=== PATIENT | female | born 1940 | race Caucasian/White ===

== ENCOUNTER 2024-03-23 11:57 | Inpatient (IN) | payer MEDICARE, MEDICAID ==
[2024-03-23 13:07] LABS: BASOPHILS ABSOLUTE AUTO 0.06 K/uL (0.00-0.20); BASOPHILS PERCENT AUTO 0.4 % (0.0-1.0); EOSINOPHILS ABSOLUTE AUTO 0.05 K/uL (0.00-0.45); EOSINOPHILS PERCENT AUTO 0.4 % (0.0-6.0); HEMATOCRIT 44.4 % (37.0-47.0); HEMOGLOBIN 14.6 g/dL (12.0-16.0); IMMATURE GRAN ABSOLUTE AUTO 0.06 K/uL (0.00-0.05); IMMATURE GRAN PERCENT AUTO 0.4 % (0.0-0.4); LYMPHOCYTES ABSOLUTE AUTO 2.08 K/uL (1.00-4.80); LYMPHOCYTES PERCENT AUTO 14.6 % (24.0-44.0); MEAN CORPUSCULAR HEMOGLOBIN 28.9 pg (28.0-32.0); MEAN CORPUSCULAR HGB CONC 32.9 g/dL (32.0-36.0); MEAN CORPUSCULAR VOLUME 87.9 fL (83.0-99.0); MEAN PLATELET VOLUME 11.4 fL (9.4-12.3); MONOCYTES ABSOLUTE AUTO 1.29 K/uL (0.00-0.80); NEUTROPHILS ABSOLUTE AUTO 10.73 K/uL (1.80-7.70); NEUTROPHILS PERCENT AUTO 75.2 % (41.0-71.0); PLATELET COUNT,PLT 137 K/uL (150-400); RED BLOOD CELL COUNT 5.05 M/uL (4.10-5.30); WHITE BLOOD CELL COUNT,WBC 14.27 K/uL (3.9-11.3)
[2024-03-23 13:33] LABS: LACTIC ACID 1.2 mmol/L (0.4-2.0)
[2024-03-23 13:37] LABS: APPEARANCE,URINE CLEAR; BILIRUBIN,URINE NEGATIVE (NEGATIVE); COLOR,URINE YELLOW; GLUCOSE,URINE NEGATIVE (NEGATIVE); KETONES,URINE TRACE mg/dL (NEGATIVE); LEUKOCYTE ESTERASE,URINE NEGATIVE (NEGATIVE); NITRITE,URINE NEGATIVE (NEGATIVE); OCCULT BLOOD,URINE NEGATIVE (NEGATIVE); PROTEIN,URINE 30 mg/dL (NEGATIVE); UROBILINOGEN,URINE 0.2 EU/dL (<2.0)
[2024-03-23 13:37] LABS: PH,VENOUS 7.33 (7.31-7.41)
[2024-03-23] MEDS: Cefepime 2 GM in Sodium Chloride 0.9% 50 ML IV STA (13:43)
[2024-03-23 13:46] LABS: AMPHETAMINES SCREEN, URINE NEGATIVE (CUTOFF=500); BARBITURATE SCREEN,URINE NEGATIVE (CUTOFF=200); BENZODIAZEPINES SCREEN,URINE NEGATIVE (CUTOFF=150); BUPRENORPHINE SCREEN,URINE NEGATIVE (CUTOFF=10); METHADONE SCREEN, URINE NEGATIVE (CUTOFF=200); METHAMPHETAMINES SCREEN, URINE PRESUMPTIVE POSITIVE (CUTOFF=500); OXYCODONE SCREEN,URINE NEGATIVE (CUT0FF=100); PCP SCREEN,URINE NEGATIVE (CUTOFF=25); THC SCREEN,URINE 20 NG/ML NEGATIVE (CUTOFF=50)
[2024-03-23 13:59] LABS: BACTERIA,URINE RARE (NEGATIVE); EPITHELIAL CELLS,URINE MODERATE (NONE-FEW); WBC,URINE 0-1 (0-5/HPF)
[2024-03-23 14:06] LABS: A/G RATIO 0.9 (0.9-1.6); ACETAMINOPHEN < 2.0 ug/mL; ALANINE AMINOTRANSFERASE,ALT 13 IU/L (14-63); ALKALINE PHOSPHATASE 80 U/L (46-116); ASPARTATE AMNIOTRANSFERASE,AST 20 IU/L (15-37); BILIRUBIN TOTAL 0.6 mg/dL (0.2-1.0); BLOOD UREA NITROGEN,BUN 35 mg/dL (7.0-18.0); CALCIUM 8.2 mg/dL (8.5-10.1); CHLORIDE,CL 105 mmol/L (98-107); CREATINE KINASE,CK 341 U/L (26-308); CREATININE 1.5 mg/dL (0.6-1.0); EST CRCL DRUG DOSING (CG) 22.87 mL/min; GLUCOSE RANDOM 160 mg/dL (74-106); LIPASE 12 U/L (16-77); MAGNESIUM 1.8 mg/dL (1.8-2.4); POTASSIUM,K 4.2 mmol/L (3.5-5.1); PRO B-TYPE NATRIUR PEPT,BNPPRO 694 pg/mL (0-450); PROTEIN TOTAL,TP 6.3 g/dL (6.4-8.2); SALICYLATE 3.4 mg/dL (0.0-20.0); SODIUM,NA 143 mmol/L (136-145)
[2024-03-23 14:07] LABS: ESTIMATED GFR 35 mL/min (>60); ETHANOL BLOOD MEDICAL < 3.0 mg/dL
[2024-03-23 14:16] LABS: TSH ULTRASENSITIVE 0.28 uIU/mL (0.36-3.74)
[2024-03-23 14:32] LABS: T4 FREE 1.22 ng/dL (0.76-1.46)
[2024-03-23] MEDS ORDERED: Polyethylene Glycol 3350 Powder 17 GM Packet PO PRN (18:33)
[2024-03-23] MEDS ORDERED: Ondansetron 4 MG/2 ML SDV IVPUSH PRN (18:33)
[2024-03-23] MEDS ORDERED: Naloxone 0.4 MG/ML SDV IVPUSH PRN (18:33)
[2024-03-23] MEDS ORDERED: Melatonin 3 MG Tab PO PRN (18:33)
[2024-03-23] MEDS ORDERED: Acetaminophen 650 MG Supp RECTAL PRN (18:33)
[2024-03-23] MEDS ORDERED: 50% Dextrose in Water 50 ML Syringe IVPUSH PRN (18:41)
[2024-03-23] MEDS ORDERED: Glucagon,Human Recombinant 1 MG Vial IM PRN (18:41)
[2024-03-23] MEDS ORDERED: Sodium Chloride 0.9% 1,000 ML IV SCH (18:45)
[2024-03-23 19:11] LABS: HEMOGLOBIN A1C 7.7 %
[2024-03-23] MEDS: Insulin Aspart 100 Units/ML 3 ML Pen SUBCUT SCH (19:49)
[2024-03-23] MEDS: Sodium Chloride 0.9% 1,000 ML IV SCH ×2 (20:01→20:29)
[2024-03-23] MEDS: Sodium Chloride 0.9% 500 ML IV ONE (20:48)
[2024-03-23] MEDS: Sodium Chloride 0.9% 1,000 ML IV STA (20:48)
[2024-03-24 06:35] LABS: BASOPHILS ABSOLUTE AUTO 0.07 K/uL (0.00-0.20); BASOPHILS PERCENT AUTO 0.5 % (0.0-1.0); EOSINOPHILS ABSOLUTE AUTO 0.04 K/uL (0.00-0.45); EOSINOPHILS PERCENT AUTO 0.3 % (0.0-6.0); HEMATOCRIT 39.4 % (37.0-47.0); HEMOGLOBIN 13.5 g/dL (12.0-16.0); IMMATURE GRAN ABSOLUTE AUTO 0.05 K/uL (0.00-0.05); IMMATURE GRAN PERCENT AUTO 0.4 % (0.0-0.4); LYMPHOCYTES ABSOLUTE AUTO 1.66 K/uL (1.00-4.80); LYMPHOCYTES PERCENT AUTO 12.5 % (24.0-44.0); MEAN CORPUSCULAR HEMOGLOBIN 29.7 pg (28.0-32.0); MEAN CORPUSCULAR HGB CONC 34.3 g/dL (32.0-36.0); MEAN CORPUSCULAR VOLUME 86.6 fL (83.0-99.0); MEAN PLATELET VOLUME 11.6 fL (9.4-12.3); MONOCYTES PERCENT AUTO 11.3 % (0.0-8.0); NEUTROPHILS ABSOLUTE AUTO 9.94 K/uL (1.80-7.70); PLATELET COUNT,PLT 138 K/uL (150-400); RED BLOOD CELL COUNT 4.55 M/uL (4.10-5.30); WHITE BLOOD CELL COUNT,WBC 13.26 K/uL (3.9-11.3)
[2024-03-24 06:59] LABS: CALCIUM 8.2 mg/dL (8.5-10.1); CARBON DIOXIDE,CO2 22.9 mmol/L (21.0-32.0); CREATININE 0.9 mg/dL (0.6-1.0); EST CRCL DRUG DOSING (CG) 38.12 mL/min; MAGNESIUM 1.6 mg/dL (1.8-2.4); POTASSIUM,K 3.6 mmol/L (3.5-5.1)
[2024-03-24] MEDS: Morphine 2 MG/ML SYRINGE IVPUSH PRN (09:44)
[2024-03-24] MEDS ORDERED: oxyCODONE 5 MG Tab PO PRN ×2 (10:09→21:00)
[2024-03-24] MEDS: cefTRIAXone 1 GM in Sodium Chloride 0.9% 50 ML IV SCH (10:17)
[2024-03-24] MEDS: oxyCODONE 5 MG Tab PO PRN (15:42)
[2024-03-24] MEDS ORDERED: OXYCODONE HCL 10 MG PO SCH (17:15)
[2024-03-24] MEDS: hydrALAZINE 20 MG/ML SDV IVPUSH ONE (21:05)
[2024-03-24] MEDS: Lisinopril 10 MG Tab PO ONE (21:08)
[2024-03-24] MEDS: Magnesium Sulfate/Water Premix 2 GM in Premix Bag 1 BAG IV ONE (21:08)
[2024-03-24] MEDS: Acetaminophen 325 MG Tab PO PRN (22:58)
[2024-03-24] MEDS: Morphine 2 MG/ML SYRINGE IVPUSH ONE (23:09)
[2024-03-24] MEDS: oxyCODONE 5 MG Tab PO ONE (23:40)
[2024-03-25] MEDS: Lisinopril 10 MG Tab PO SCH (08:49)
[2024-03-25] MEDS: Rosuvastatin 10 MG Tab PO SCH (08:50)
[2024-03-25] MEDS: Ibuprofen 600 MG Tab PO PRN (11:22)
[2024-03-25] MEDS: oxyCODONE 5 MG Tab PO ONE (13:43)
[2024-03-25 16:23] LABS: BASOPHILS ABSOLUTE AUTO 0.05 K/uL (0.00-0.20); BASOPHILS PERCENT AUTO 0.5 % (0.0-1.0); EOSINOPHILS ABSOLUTE AUTO 0.16 K/uL (0.00-0.45); EOSINOPHILS PERCENT AUTO 1.6 % (0.0-6.0); HEMATOCRIT 41.9 % (37.0-47.0); HEMOGLOBIN 14.4 g/dL (12.0-16.0); IMMATURE GRAN ABSOLUTE AUTO 0.04 K/uL (0.00-0.05); IMMATURE GRAN PERCENT AUTO 0.4 % (0.0-0.4); LYMPHOCYTES PERCENT AUTO 14.9 % (24.0-44.0); MEAN CORPUSCULAR HEMOGLOBIN 29.3 pg (28.0-32.0); MEAN CORPUSCULAR HGB CONC 34.4 g/dL (32.0-36.0); MEAN CORPUSCULAR VOLUME 85.2 fL (83.0-99.0); MONOCYTES ABSOLUTE AUTO 1.12 K/uL (0.00-0.80); MONOCYTES PERCENT AUTO 11.1 % (0.0-8.0); NEUTROPHILS ABSOLUTE AUTO 7.23 K/uL (1.80-7.70); NEUTROPHILS PERCENT AUTO 71.5 % (41.0-71.0); PLATELET COUNT,PLT 165 K/uL (150-400); RED BLOOD CELL COUNT 4.92 M/uL (4.10-5.30)
[2024-03-25 16:51] LABS: A/G RATIO 0.7 (0.9-1.6); ALBUMIN 2.6 g/dL (3.4-5.0); BILIRUBIN TOTAL 0.9 mg/dL (0.2-1.0); CALCIUM 8.8 mg/dL (8.5-10.1); CARBON DIOXIDE,CO2 21.2 mmol/L (21.0-32.0); CREATININE 0.8 mg/dL (0.6-1.0); EST CRCL DRUG DOSING (CG) 42.88 mL/min; POTASSIUM,K 3.2 mmol/L (3.5-5.1); PROTEIN TOTAL,TP 6.4 g/dL (6.4-8.2)
[2024-03-25] MEDS: hydrALAZINE 20 MG/ML SDV IVPUSH PRN (17:04)
[2024-03-25] MEDS: Morphine 2 MG/ML SYRINGE IVPUSH ONE (18:47)
[2024-03-25] MEDS: LORazepam 0.5 MG Tab PO ONE (19:27)
[2024-03-25] MEDS: oxyCODONE 5 MG Tab PO PRN (21:43)
[2024-03-26 07:15] LABS: BASOPHILS ABSOLUTE AUTO 0.04 K/uL (0.00-0.20); BASOPHILS PERCENT AUTO 0.5 % (0.0-1.0); EOSINOPHILS ABSOLUTE AUTO 0.21 K/uL (0.00-0.45); EOSINOPHILS PERCENT AUTO 2.8 % (0.0-6.0); HEMATOCRIT 37.6 % (37.0-47.0); HEMOGLOBIN 13.1 g/dL (12.0-16.0); IMMATURE GRAN ABSOLUTE AUTO 0.03 K/uL (0.00-0.05); IMMATURE GRAN PERCENT AUTO 0.4 % (0.0-0.4); LYMPHOCYTES ABSOLUTE AUTO 1.05 K/uL (1.00-4.80); LYMPHOCYTES PERCENT AUTO 13.9 % (24.0-44.0); MEAN CORPUSCULAR HEMOGLOBIN 29.4 pg (28.0-32.0); MEAN CORPUSCULAR HGB CONC 34.8 g/dL (32.0-36.0); MEAN CORPUSCULAR VOLUME 84.3 fL (83.0-99.0); MONOCYTES ABSOLUTE AUTO 1.05 K/uL (0.00-0.80); MONOCYTES PERCENT AUTO 13.9 % (0.0-8.0); NEUTROPHILS ABSOLUTE AUTO 5.19 K/uL (1.80-7.70); NEUTROPHILS PERCENT AUTO 68.5 % (41.0-71.0); PLATELET COUNT,PLT 165 K/uL (150-400); RED BLOOD CELL COUNT 4.46 M/uL (4.10-5.30); WHITE BLOOD CELL COUNT,WBC 7.57 K/uL (3.9-11.3)
[2024-03-26 07:38] LABS: A/G RATIO 0.7 (0.9-1.6); ALBUMIN 2.5 g/dL (3.4-5.0); BILIRUBIN TOTAL 0.8 mg/dL (0.2-1.0); CALCIUM 8.5 mg/dL (8.5-10.1); CREATININE 0.7 mg/dL (0.6-1.0); EST CRCL DRUG DOSING (CG) 49.01 mL/min; POTASSIUM,K 3.3 mmol/L (3.5-5.1)
== END 2024-03-26 14:01 | disposition home or self-care (01) | DRG 897 ==
LOC: MW.ED 11:57 → MW.MS 17:15 → OBSVTOIN 17:15
PROVIDERS: ADMIT Family Medicine; ATTEND Family Medicine
DX: F19.10 Other psychoactive substance abuse, uncomplicated (principal); J96.01 Acute respiratory failure with hypoxia; R41.82 Altered mental status, unspecified; F14.10 Cocaine abuse, uncomplicated; F11.10 Opioid abuse, uncomplicated; F15.10 Other stimulant abuse, uncomplicated; R00.1 Bradycardia, unspecified; Z75.8 Other problems related to medical facilities and other health care; I10 Essential (primary) hypertension; Z98.2 Presence of cerebrospinal fluid drainage device; E78.5 Hyperlipidemia, unspecified; E11.9 Type 2 diabetes mellitus without complications; M54.9 Dorsalgia, unspecified; F41.9 Anxiety disorder, unspecified; D72.828 Other elevated white blood cell count; D69.6 Thrombocytopenia, unspecified; N28.9 Disorder of kidney and ureter, unspecified; J44.9 Chronic obstructive pulmonary disease, unspecified; Z85.828 Personal history of other malignant neoplasm of skin; Z90.49 Acquired absence of other specified parts of digestive tract; Z98.890 Other specified postprocedural states; Z86.73 Personal history of transient ischemic attack (TIA), and cerebral infarction without residual deficits; Z72.0 Tobacco use; Z79.899 Other long term (current) drug therapy
CPT/HCPCS: 36415; 70450; 71045; 72125; 72128; 72131; 80053; 80143; 80179; 80305; 80307; 81001; 82550; 82803; 83036; 83605; 83690; 83735; 83880; 84439; 84443; 84484; 85025; 87040 ×2; 93005 ×2; 96365; 99285; J0692; J3490; 80048; 82947; 87428-QW; 93010; 96361; 96375; 97162-GP; 99284; A9270-GY; G0378; J0360; J0696; J1815-GY; J2270; J3475; J7030